=== PATIENT | male | born 1945 | race African-American/Black ===

== ENCOUNTER → 2018-08-05 | Outpatient (CLI) | payer MEDICARE, OTHER ==
[~2018-08-05] MED LIST: REGADENOSON 0.4 MG/5 ML DISP.SYRIN. IV ONE
--- NOTE | 2018-08-09 15:12 | PCVCIMAG ---
APPROVED REPORT Imaging Protocol: Rest Tc-99m/Stress Tc-99m 1 day Study performed: 08/05/2018 12:53:39 Indication: HTN, Hyperlipidemia, Exercise Intolerance Patient Location: Out-Patient Stress Nurse: Mita Barr RN, Sari Thompson RN [place] Tech:Ragini Nelida [facility] Ht: 6 ft 1 in Wt: 160 lbs BSA: 1.96 m2 HR: 54 bpm BP: 168/75 mmHg BMI: 21.1 Medical History Medical History: HTN, Hyperlipidemia, Current Smoker Medications: ASA, Amlodipine, HCTZ, Losartan, Pravastatin, Inhalers, Pantoprazole Allergies: No known drug allergies Cardiac Risk Factors: Age Pretest Chest Pain Characteristics: No chest pain Exercise History: Sedentary Resting Data Rest SPECT myocardial perfusion imaging was performed in supine position 45 minutes following the intravenous injection of 11.7 mCi of Tc-99m Sestamibi. Time of rest injection: 11.7 Date: 08/05/2018 Administration Route: IV Administration Site: Right Hand Pharmacologic Stress Pharmacologic stress test was performed by injecting Regadenoson 0.4 mg IV push over 10-15 seconds immediately followed by the intravenous injection of 34.4 mCi of Tc-99m Sestamibi. Time of stress injection: 1330 Date: 08/05/2018 Administration Route: IV Administration Site: Right Hand Gated Stress SPECT was performed 45 minutes after stress injection. The images were gated to evaluate regional wall motion and calculate left ventricular ejection fraction. Stress Test Details Stress Test: Pharmacologic stress testing performed using 0.4 mg of regadenoson per 5 mL given IV over 10 seconds. Reason for pharmacologic stress test: physical limitation, patient refused treadmill. HRMax Heart Rate (APMHR): 145 bpm Resting HR: 54 bpmTarget HR (85% APMHR): 123 bpm Max HR Achieved: 96 bpm % of APMHR: 66 Recovery HR: 72 bpm BP Resting BP: 168/75 mmHg Max BP: 180/82 mmHg Recovery BP: 139/63 mmHg ECG Resting ECG: Sinus Bradycardia Stress ECG: Sinus Rhythm ST Change: None Arrhythmia: None Recovery ECG: Sinus Rhythm Recovery ST Change: None Clinical Reason for Termination: Completed protocol Stress Symptoms: Dyspnea Exercise duration: 0 min 55 sec Symptoms resolved during recovery. Stress ECG Conclusion 1. Adequate response to intravenous Lexiscan 2. Inadequate heart rate for ECG diagnosis Study Quality Study: Good Artifact: Mild Diaphragmatic artifact Study Data Post stress, the left ventricular ejection was 64%.. SSS: 2 SRS: 4 SDS: 1 TID = 1.09. Perfusion No evidence of stress induced ischemia or prior myocardial infarction. There is a large area of severely reduced uptake in the entire segment of the inferior wall which is seen on the stress images as well as the resting images. This area thickens and moves normally and is most consistent with attenuation artifact. Wall Motion Normal left ventricular size and function with no regional wall motion abnormalities. Nuclear Conclusion No evidence of stress induced ischemia or prior myocardial infarction. Normal left ventricular size and function with no regional wall motion abnormalities. Post stress, the left ventricular ejection was 64%. No prior study available for comparison. Interpreted by: Darryl Mercer MD Electronically Approved: 08/05/2018 15:28:57 <Conclusion> 1. Adequate response to intravenous Lexiscan 2. Inadequate heart rate for ECG diagnosis
== END | disposition home or self-care (01) ==
LOC: PCVCIMAG 12:15
PROVIDERS: ATTEND Family Medicine
DX: I10 Essential (primary) hypertension (principal); E78.5 Hyperlipidemia, unspecified; J44.9 Chronic obstructive pulmonary disease, unspecified; F17.200 Nicotine dependence, unspecified, uncomplicated; Z90.49 Acquired absence of other specified parts of digestive tract
CPT/HCPCS: 78452; 93017; A9500; J2785